=== PATIENT | female | born 1990 | race Caucasian/White ===

== ENCOUNTER → 2020-01-15 10:25 | Outpatient (BNVA) | payer OTHER, SELFPAY | PROVIDERS: Family Provider Family Medicine; PCP Family Medicine; Visit Provider Nurse Practitioner Family | DX: J11.1 Influenza due to unidentified influenza virus with other respiratory manifestations (principal); K52.9 Noninfective gastroenteritis and colitis, unspecified | CPT/HCPCS: 87804 ==

== ENCOUNTER → 2020-09-28 11:22 | Outpatient (BNVA) | payer OTHER, SELFPAY | PROVIDERS: Family Provider Family Medicine; PCP Family Medicine; Visit Provider Family Medicine | DX: Z20.828 Contact with and (suspected) exposure to other viral communicable diseases (principal) | CPT/HCPCS: 87635 ==

== ENCOUNTER 2020-09-30 20:05 | Emergency (ER) | payer OTHER, SELFPAY ==
[2020-09-30 20:10] VITALS: BP 126/86; PULSE 80; RESP 18; TEMP 37; O2SAT 94; BMI 28.8
--- NOTE | 2020-09-30 20:24 | W.ED.COVID ---
HPI - COVID General: Chief Complaint: COVID symptoms Stated Complaint: FEVER,SOB,MUSCLE ACHES,NAUSEA, waiting on covid te Time Seen by Provider: 09/30/20 20:16 Triage information: No fever, cough or shortness of breath. No known COVID + exposure last 14 days History of Present Illness: HPI Narrative: Patient with known Covid exposure now with symptoms. Sats are maintaining 90 to 95% at home MD complaint: reported COVID exposure and has COVID symptoms Prior covid testing: yes, results pending at [facility] location COVID 19 common symptoms: positive chills, non-productive cough, body aches and diarrhea; negative headache(s), throat pain or nasal congestion COVID 19 other sytmptoms: negative chest pain Onset (ago): day(s) Severity: mild Treatment prior to arrival: none COVID Results: SARS-CoV-2 RNA (RT-PCR) Pending 09/28/20 11:22 09/28/20 Review of Systems Const: Reports: chills and body aches Eyes: Denies: change in vision or blurry vision ENMT: Denies: throat pain or nasal congestion Card: Denies: chest pain or dyspnea on exertion Resp: Reports: non-productive cough GI: Reports: diarrhea Musc: Denies: extremity pain Skin/Breast: Denies: rash Neuro: Denies: headache(s) Psych: Denies: anxiety or depression Kelvin/Lymph: Denies: easy bruising PFS ED PFSH: Medical History (Updated 09/30/20 @ 20:24 by GRABIEL Holden) Anxiety and depression Mild endometriosis Pelvic pain in female Surgical History H/O bilateral salpingectomy Family History Grandmother Diabetes maternal and paternal Heart disease paternal Grandfather Heart disease paternal Mother Hypothyroidism Sister Cervical cancer Other CAD (coronary artery disease) Cancer Social History Smoking and tobacco status: never smoked Alcohol intake: never Physical Exam Const: COMMON NORMALS: no acute distress, average body habitus and patient oriented x3 HENMT: COMMON NORMALS: normocephalic HEAD & SCALP: normal to inspection and normocephalic FACE & SINUS: normal facial exam Eye: COMMON NORMALS: conjunctivae normal GENERAL EYE: appearance normal, both eyes and all related structures CONJUNCTIVA: Yes conjunctivae normal Neck/C-Spine: COMMON NORMALS: no JVD Chest: COMMONS NORMALS: normal inspection of the chest Resp: COMMON NORMALS: normal respiratory effort and clear to auscultation bilaterally AUSCULTATION: clear to auscultation bilaterally Cardio: COMMON NORMALS: no JVD, regular rate and regular rhythm RATE: regular rate RHYTHM: regular rhythm GI: INSPECTION: Yes normal to inspection Extremity: COMMON NORMALS: normal to inspection and full ROM Neuro: COMMON NORMALS: patient oriented x3 Course Vital Signs: Vital signs: Vital Signs Temperature 98.6 F 09/30/20 20:10 Pulse Rate 80 09/30/20 20:10 Respiratory Rate 18 09/30/20 20:10 Blood Pressure 126/86 09/30/20 20:10 Pulse Oximetry 94 09/30/20 20:10 MDM - COVID COVID Results: SARS-CoV-2 RNA (RT-PCR) Pending 09/28/20 11:22 09/28/20 Discharge Plan Discharge Patient Disposition: Home Clinical Impression: Exposure to severe acute respiratory syndrome coronavirus 2 (SARS-CoV-2) Condition: Stable Prescriptions: New dexamethasone 6 mg tablet 6 mg PO DAILY Qty: 7 RF: 0 Zithromax Z-Jay 250 mg tablet See Rx Instructions PO .COMPLEX Qty: 6 RF: 0 No Action biotin 10 mg tablet 10 mg PO DAILY RF: 0 multivitamin Capsule 1 cap PO DAILY RF: 0 ibuprofen 600 mg tablet 600 mg PO Q8H PRNRF: 0 loratadine [Claritin] 10 mg tablet 10 mg PO DAILY RF: 0 escitalopram oxalate [Lexapro] 10 mg tablet 10 mg PO DAILY Qty: 90 RF: 1 Discharge Orders: Discharge Order (Routine); Ordered 09/30/20 Ordered By: Yamil Oliva Referrals: Jana Goss DO [Primary Care Provider] - Discharge Diet: Usual diet Discharge Activity: Increase activity as tolerated Activity Restrictions/Additional Instructions: Follow-up with medical provider as directed. Take medications as prescribed. Return to the ER or your medical provider if condition worsens. Please read and understand discharge instructions. If any questions ask please. Self quarantine to get your Covid test back. Coding Level of Care Code ED Director Cardiovascular for Holly Long
[2020-09-30 20:26] VITALS: O2SAT 94
[2020-09-30 20:30] VITALS: BP 123/78; PULSE 79; RESP 18; O2SAT 99
[2020-09-30] MEDS: azithromycin 250 mg Tablet 500 MG PO (20:30)
[2020-09-30] MEDS: dexamethasone 4 mg Tablet 10 MG PO (20:30)
== END 2020-09-30 20:31 | disposition home or self-care (01) ==
PROVIDERS: Emergency Provider Nurse Practitioner Family; PCP Family Medicine
DX: Z20.828 Contact with and (suspected) exposure to other viral communicable diseases (principal)
CPT/HCPCS: 12345; 99281; 99283; J8540; Q0144

== ENCOUNTER → 2020-12-09 13:10 | Outpatient (BNVA) | payer OTHER, SELFPAY | PROVIDERS: PCP Family Medicine; Visit Provider Family Medicine | DX: Z13.6 Encounter for screening for cardiovascular disorders (principal); Z68.30 Body mass index [BMI] 30.0-30.9, adult | CPT/HCPCS: 80053; 85025; 85651; 86038; 86140; 86431 ==

== ENCOUNTER 2021-04-04 10:03 | Emergency (ER) | payer OTHER, SELFPAY ==
[2021-04-04 10:08] VITALS: BP 156/94; PULSE 77; RESP 16; TEMP 36.5; O2SAT 95; BMI 31.1
--- NOTE | 2021-04-04 10:17 | ECG_ITS ---
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 Measurements Intervals [place] Rate: 73 P: 21 UT: 133 QRS: 20 QRSD: 110 T: 24 QT: 386 QTc: 426 Interpretive Statements SINUS RHYTHM POSSIBLE RIGHT VENTRICULAR CONDUCTION DELAY [RSR (QR) IN V1/V2] No previous ECG available for comparison Electronically Signed On 04-04-2021 18:37:28 CDT by Ledy Lagunas M.D. [id number] f
--- NOTE | 2021-04-04 10:17 | XR_ITS ---
WS: [id number] Exam: XR chest 1V portable [id number] Date/Time of Exam: 04/04/2021 10:21 AM Reason For Exam: Cough No priors. Findings: The lungs are clear and fully expanded. Costophrenic angles are sharp. No infiltrates. Bronchovascula r relief appears normal. Cardiac silhouette is unremarkable. Bony elements are intact. XR/XR chest 1V portable [id number] IMPRESSION: Unremarkable chest radiograph.
--- NOTE | 2021-04-04 10:21 | W.ED.SYNCOPE ---
HPI - Syncope General: Chief Complaint: Syncope Stated Complaint: passed out Time Seen by Provider: 04/04/21 10:14 History of Present Illness: HPI narrative: This patient is a 30-year-old female who presents to the emergency department for a syncopal near syncopal episode this morning when getting up out of bed. Patient has dilated pupils on exam. Patient states she awakened this morning and her dog was up on the bed around her head barking patient describes that she has had numbness and tingling for several days to her lips and her fingertips. Patient does have a history of anxiety but she states this is well controlled. Patient states she got up this morning and felt really weak and had a her episode. Patient states she did pass out some as a teenager when she has severe anemia issues. But states she has regular periods that are little light and should not have an issue. Patient does not describe and states that she has had her fallopian tubes removed. Will do medical evaluation treat as needed. complaint: felt faint and almost passed out Associated symptoms: Deny abdominal pain, chest pain, fever(s), headache(s), lightheadedness or nausea Review of Systems General: Reports: 10 or more systems reviewed and unremarkable except in HPI and below Const: Denies: fever(s), chills, body aches or fatigue Eyes: Denies: change in vision or blurry vision ENMT: Denies: throat pain, hoarseness or mouth pain Card: Denies: chest pain, palpitations, irregular heart rhythm, edema, swelling of feet/ankles or lightheadedness Resp: Denies: dyspnea, productive cough, non-productive cough, wheezing or pain on inspiration GI: Denies: abdominal pain, nausea or vomiting : Denies: flank pain, difficulty voiding, dysuria, urinary frequency, urinary urgency or urinary hesitancy Musc: Denies: neck pain, back pain, extremity pain, extremity swelling, joint pain, joint swelling, joint redness, joint warmth or limited range of motion Skin/Breast: Denies: rash, pruritus, erythema or skin tenderness Neuro: Denies: headache(s), numbness in extremities or weakness in extremities Psych: Denies: anxiety or depression [facility] ED PFSH: Medical History (Updated 04/04/21 @ 13:16 by Jono Pierson MD) Anxiety and depression Mild endometriosis Pelvic pain in female Surgical History H/O bilateral salpingectomy Family History Grandmother Diabetes maternal and paternal Heart disease paternal Grandfather Heart disease paternal Mother Hypothyroidism Sister Cervical cancer Other CAD (coronary artery disease) Cancer Social History Smoking and tobacco status: never smoked Alcohol intake: never Physical Exam Const: COMMON NORMALS: no acute distress, average body habitus, patient oriented x3, no limitations, healthy appearing, alert and well nourished HENMT: COMMON NORMALS: normocephalic, atraumatic, hearing grossly normal bilaterally, external ears normal, EAC's normal, TM's normal bilaterally, Normal external nose present, Normal nasal mucous membranes and turbinates present, moist oral mucous membranes, oropharynx normal, dentition normal and gingiva normal HEAD & SCALP: normocephalic and atraumatic NOSE: Normal external nose present and Normal nasal mucous membranes and turbinates present EXTERNAL EAR: Yes external ears normal EXTERNAL AUDITORY CANAL: EAC's normal TYMPANIC MEMBRANE: TM's normal bilaterally Eye: PUPIL: Yes Dilated pupils Neck/C-Spine: COMMON NORMALS: full ROM, no lymphadenopathy, supple, no meningeal signs, no JVD, Thyroid normal and No carotid bruits THYROID: Thyroid normal Chest: COMMONS NORMALS: normal inspection of the chest, normal palpation of entire chest wall, normal inspection of the breasts and normal palpation of the breasts Breast/axilla inspection: Yes normal inspection of the breasts BREAST/AXILLA PALPATION: Yes normal palpation of the breasts Resp: COMMON NORMALS: normal respiratory effort, No retractions, No use of accessory muscles, clear to auscultation bilaterally and percussion normal AUSCULTATION: clear to auscultation bilaterally PERCUSSION: percussion normal Cardio: COMMON NORMALS: no JVD, regular rate, regular rhythm, S1 normal heart sound present, S2 normal heart sound present, No gallops present (Cardio), No clicks present (Cardio), No murmurs present (Cardio), No rub (Cardio) and Peripheral pulses 2+ throughout RATE: regular rate RHYTHM: regular rhythm HEART SOUNDS: S1 normal heart sound present and S2 normal heart sound present PERIPHERAL PULSES: Peripheral pulses 2+ throughout GI: COMMON NORMALS: Normal to inspection, nondistended, normoactive bowel sounds present, Soft to palpation, non-tender, No hepatosplenomegaly present, no masses and no bruits PALPATION: Yes Soft to palpation and Yes No hepatosplenomegaly present : COMMON NORMALS: Yes no CVA tenderness, Yes normal external appearance, Yes normal appearance of the vagina, Yes normal appearance of the cervix, Yes normal bimanual exam, Yes No adnexal tenderness and Yes no masses BLADDER/KIDNEY EXAM: Yes no CVA tenderness BIMANUAL EXAM - VAGINA & UTERUS: Yes normal bimanual exam Back/Pelvis: COMMON NORMALS: no CVA tenderness, thoracic and lumbar spine normal to inspection, no thoracic nor lumbar tenderness, thoraco-lumbar ROM normal and straight leg raise negative bilaterally Extremity: COMMON NORMALS: normal to inspection, full ROM, capillary refill normal, no joint enlargement, no clubbing, cyanosis or edema, no calf tenderness and no pedal edema Neuro: COMMON NORMALS: patient oriented x3 SENSORIUM/ORIENTATION: Yes alert MENINGEAL SIGNS: Yes no meningeal signs Course Reevaluation(s): Reevaluation #1: Nurse reports orthostatics are complete. Nurse states that slight increase of pulse but unchanged blood pressure. We will continue to monitor patient Time: 10:58 Reevaluation #2: Negative evaluation in the emergency department. Numbness and tingling to the fingers and lips have resolved. Patient states she feels much better after IV fluid bolus. Patient mild increase in heart rate and dizziness on orthostatics the beginning of her evaluation but negative now. Patient is feeling much improved. We did discuss at length with patient about orthostatic hypotension and orthostatic dizziness. Patient be careful and rising to a stand from a lying or sitting position. Encourage p.o. fluids and she will follow up with PCP in 2 to 3 days. Patient is discharged home Time: 13:13 Vital Signs: Vital signs: Vital Signs Temperature 97.7 F 04/04/21 10:08 Pulse Rate 67 04/04/21 12:54 Respiratory Rate 20 H 04/04/21 12:54 Blood Pressure 107/88 04/04/21 12:54 Pulse Oximetry 98 04/04/21 12:54 MDM - Syncope MDM Narrative: Medical decision making narrative: This patient is a 30-year-old female who presents to the emergency department for a syncopal near syncopal episode this morning when getting up out of bed. Patient has dilated pupils on exam. Patient states she awakened this morning and her dog was up on the bed around her head barking patient describes that she has had numbness and tingling for several days to her lips and her fingertips. Patient does have a history of anxiety but she states this is well controlled. Patient states she got up this morning and felt really weak and had a her episode. Patient states she did pass out some as a teenager when she has severe anemia issues. But states she has regular periods that are little light and should not have an issue. Patient does not describe and states that she has had her fallopian tubes removed. Negative evaluation in the emergency department. Numbness and tingling to the fingers and lips have resolved. Patient states she feels much better after IV fluid bolus. Patient mild increase in heart rate and dizziness on orthostatics the beginning of her evaluation but negative now. Patient is feeling much improved. We did discuss at length with patient about orthostatic hypotension and orthostatic dizziness. Patient be careful and rising to a stand from a lying or sitting position. Encourage p.o. fluids and she will follow up with PCP in 2 to 3 days. Medical Records: Attestation: I reviewed the patient's medical records. Lab Data: Attestation: I reviewed the patient's lab results. Labs: Lab Results 04/04/21 04/04/21 04/04/21 Range/Units 10:29 10:59 10:59 WBC 6.0 (4.0-10.0) 10^3/ uL RBC 4.73 (4.1-5.3) 10^6/u L Hgb 14.9 (11.5-15.3) g/dL Hct 44.7 (37.0-47.0) % MCV 94.5 (81-99) fL MCH 31.5 (28.0-34.0) pg MCHC 33.3 (30.0-36.0) g/dL RDW 12.6 (12.1-15.1) % Plt Count 214 (130-400) 10^3/c mm MPV 10.7 H (7.4-10.4) fL Neut % (Auto) 56.1 % Lymph % (Auto) 32.2 % [place] % (Auto) 8.7 % Eos % (Auto) 2.0 % Baso % (Auto) 0.8 % Neut # (Auto) 3.36 (1.8-7.7) 10^3/u L Lymph # (Auto) 1.9 (0.8-4.8) 10^3/u L [place] # (Auto) 0.5 (0.2-0.9) 10^3/u L Eos # (Auto) 0.1 (0.0-0.8) 10^3/u L Baso # (Auto) 0.1 (0.0-0.1) 10^3/u L Nucleated RBC % (a uto) 0 % Nucleated RBCs # 0.0 /100WBC PT Cancelled INR Cancelled APTT Cancelled Specimen Type Arterial Sample Site Radial, right ABG pH 7.41 (7.35-7.45) ABG pCO2 40.6 (35-45) mmHg ABG pO2 91.0 (80.0-100.0) mmH g ABG HCO3 26.0 (22-26) mmol/L ABG Base Excess 1.3 (-2.0-2.0) mmol/ L Samir Test Pos Hematocrit 45.8 (37-47) % Hgb O2 Saturation 95.7 (95-100) % Carboxyhemoglobin < 0.0 L (0.4-20.1) %THgb Methemoglobin 0.8 (0.4-1.5) % Total Hemoglobin 14.9 (12-16) g/dL O2 Delivery Device Room air FiO2 21.0 % Pot Fisher ID Ed Sodium Potassium Chloride Carbon Dioxide Anion Gap BUN Creatinine GFR Calculation Glucose Calculated Osmolal ity Calcium Total Bilirubin AST ALT Alkaline Phosphata se Troponin T Baselin e NT-Pro-B Natriuret Pep Total Protein Albumin Globulin Urine Color (Yellow) Urine Appearance (CLEAR) Urine pH (5-7) Ur Specific Gravit y (1.005-1.030) Urine Protein (Negative) Urine Glucose (UA) (Normal) Urine Ketones (Negative) Urine Blood (Negative) Urine Nitrate (Negative) Urine Bilirubin (Negative) Urine Urobilinogen (Negative) mg/dL Ur Leukocyte Ewa ase (Negative) Salicylates Urine Opiates Scre en (Negative) ng/mL Acetaminophen Ur Barbiturates Sc reen (Negative) ng/mL Ur Phencyclidine S crn (Negative) ng/mL Ur Amphetamines Sc reen (Negative) ng/mL U Benzodiazepines Scrn (Negative) ng/mL Urine Cocaine Scre en (Negative) ng/mL U Marijuana (THC) Screen (Negative) ng/mL Ethyl Alcohol 04/04/21 04/04/21 04/04/21 Range/Units 10:59 10:59 11:35 WBC (4.0-10.0) 10^3/ uL RBC (4.1-5.3) 10^6/u L Hgb (11.5-15.3) g/dL Hct (37.0-47.0) % MCV (81-99) fL MCH (28.0-34.0) pg MCHC (30.0-36.0) g/dL RDW (12.1-15.1) % Plt Count (130-400) 10^3/c mm MPV (7.4-10.4) fL Neut % (Auto) % Lymph % (Auto) % [place] % (Auto) % Eos % (Auto) % Baso % (Auto) % Neut # (Auto) (1.8-7.7) 10^3/u L Lymph # (Auto) (0.8-4.8) 10^3/u L [place] # (Auto) (0.2-0.9) 10^3/u L Eos # (Auto) (0.0-0.8) 10^3/u L Baso # (Auto) (0.0-0.1) 10^3/u L Nucleated RBC % (a uto) % Nucleated RBCs # /100WBC PT INR APTT Specimen Type Sample Site ABG pH (7.35-7.45) ABG pCO2 (35-45) mmHg ABG pO2 (80.0-100.0) mmH g ABG HCO3 (22-26) mmol/L ABG Base Excess (-2.0-2.0) mmol/ L Samir Test Hematocrit (37-47) % Hgb O2 Saturation (95-100) % Carboxyhemoglobin (0.4-20.1) %THgb Methemoglobin (0.4-1.5) % Total Hemoglobin (12-16) g/dL O2 Delivery Device FiO2 % Pot Fisher ID Sodium Cancelled Potassium Cancelled Chloride Cancelled Carbon Dioxide Cancelled Anion Gap Cancelled BUN Cancelled Creatinine Cancelled GFR Calculation Cancelled Glucose Cancelled Calculated Osmolal ity Cancelled Calcium Cancelled Total Bilirubin Cancelled AST Cancelled ALT Cancelled Alkaline Phosphata se Cancelled Troponin T Baselin e Cancelled NT-Pro-B Natriuret Pep Cancelled Total Protein Cancelled Albumin Cancelled Globulin Cancelled Urine Color Straw (Yellow) Urine Appearance Clear (CLEAR) Urine pH 7 (5-7) Ur Specific Gravit y 1.010 (1.005-1.030) Urine Protein Neg (Negative) Urine Glucose (UA) Norm (Normal) Urine Ketones Negative (Negative) Urine Blood Neg (Negative) Urine Nitrate Negative (Negative) Urine Bilirubin Neg (Negative) Urine Urobilinogen Norm (Negative) mg/dL Ur Leukocyte [place]wa [place] Negative (Negative) Salicylates Cancelled Urine Opiates Scre en (Negative) ng/mL Acetaminophen Cancelled Ur Barbiturates Sc reen (Negative) ng/mL Ur Phencyclidine S crn (Negative) ng/mL Ur Amphetamines Sc reen (Negative) ng/mL U Benzodiazepines Scrn (Negative) ng/mL Urine Cocaine Scre en (Negative) ng/mL U Marijuana (THC) Screen (Negative) ng/mL Ethyl Alcohol Cancelled 04/04/21 04/04/21 04/04/21 Range/Units 11:35 11:47 11:47 WBC (4.0-10.0) 10^3/ uL RBC (4.1-5.3) 10^6/u L Hgb (11.5-15.3) g/dL Hct (37.0-47.0) % MCV (81-99) fL MCH (28.0-34.0) pg MCHC (30.0-36.0) g/dL RDW (12.1-15.1) % Plt Count (130-400) 10^3/c mm MPV (7.4-10.4) fL Neut % (Auto) % Lymph % (Auto) % [place] % (Auto) % Eos % (Auto) % Baso % (Auto) % Neut # (Auto) (1.8-7.7) 10^3/u L Lymph # (Auto) (0.8-4.8) 10^3/u L [place] # (Auto) (0.2-0.9) 10^3/u L Eos # (Auto) (0.0-0.8) 10^3/u L Baso # (Auto) (0.0-0.1) 10^3/u L Nucleated RBC % (a uto) % Nucleated RBCs # /100WBC PT 13.40 INR 0.99 APTT 31.6 Specimen Type Sample Site ABG pH (7.35-7.45) ABG pCO2 (35-45) mmHg ABG pO2 (80.0-100.0) mmH g ABG HCO3 (22-26) mmol/L ABG Base Excess (-2.0-2.0) mmol/ L Samir Test Hematocrit (37-47) % Hgb O2 Saturation (95-100) % Carboxyhemoglobin (0.4-20.1) %THgb Methemoglobin (0.4-1.5) % Total Hemoglobin (12-16) g/dL O2 Delivery Device FiO2 % Pot Fisher ID Sodium Potassium Chloride Carbon Dioxide Anion Gap BUN Creatinine GFR Calculation Glucose Calculated Osmolal ity Calcium Total Bilirubin AST ALT Alkaline Phosphata se Troponin T Baselin e 6 NT-Pro-B Natriuret Pep Total Protein Albumin Globulin Urine Color (Yellow) Urine Appearance (CLEAR) Urine pH (5-7) Ur Specific Gravit y (1.005-1.030) Urine Protein (Negative) Urine Glucose (UA) (Normal) Urine Ketones (Negative) Urine Blood (Negative) Urine Nitrate (Negative) Urine Bilirubin (Negative) Urine Urobilinogen (Negative) mg/dL Ur Leukocyte [place]wa [place]se (Negative) Salicylates Urine Opiates Scre en Negative (Negative) ng/mL Acetaminophen Ur Barbiturates Sc reen Negative (Negative) ng/mL Ur Phencyclidine S crn Negative (Negative) ng/mL Ur Amphetamines Sc reen Negative (Negative) ng/mL U Benzodiazepines Scrn Negative (Negative) ng/mL Urine Cocaine Scre en Negative (Negative) ng/mL U Marijuana (THC) Screen Negative (Negative) ng/mL Ethyl Alcohol 04/04/21 Range/Units 11:47 WBC (4.0-10.0) 10^3/ uL RBC (4.1-5.3) 10^6/u L Hgb (11.5-15.3) g/dL Hct (37.0-47.0) % MCV (81-99) fL MCH (28.0-34.0) pg MCHC (30.0-36.0) g/dL RDW (12.1-15.1) % Plt Count (130-400) 10^3/c mm MPV (7.4-10.4) fL Neut % (Auto) % Lymph % (Auto) % [place] % (Auto) % Eos % (Auto) % Baso % (Auto) % Neut # (Auto) (1.8-7.7) 10^3/u L Lymph # (Auto) (0.8-4.8) 10^3/u L [place] # (Auto) (0.2-0.9) 10^3/u L Eos # (Auto) (0.0-0.8) 10^3/u L Baso # (Auto) (0.0-0.1) 10^3/u L Nucleated RBC % (a uto) % Nucleated RBCs # /100WBC PT INR APTT Specimen Type Sample Site ABG pH (7.35-7.45) ABG pCO2 (35-45) mmHg ABG pO2 (80.0-100.0) mmH g ABG HCO3 (22-26) mmol/L ABG Base Excess (-2.0-2.0) mmol/ L Samir Test Hematocrit (37-47) % Hgb O2 Saturation (95-100) % Carboxyhemoglobin (0.4-20.1) %THgb Methemoglobin (0.4-1.5) % Total Hemoglobin (12-16) g/dL O2 Delivery Device FiO2 % Pot Fisher ID Sodium 141 Potassium 4.1 Chloride 107 Carbon Dioxide 26 Anion Gap 12.1 BUN 9 Creatinine 0.5 GFR Calculation 143.0 H Glucose 86 Calculated Osmolal ity 290 Calcium 8.4 L Total Bilirubin 0.2 AST 16 ALT 17 Alkaline Phosphata se 69 Troponin T Baselin e NT-Pro-B Natriuret Pep 45 Total Protein 6.0 L Albumin 4.5 Globulin 1.5 Urine Color (Yellow) Urine Appearance (CLEAR) Urine pH (5-7) Ur Specific Gravit y (1.005-1.030) Urine Protein (Negative) Urine Glucose (UA) (Normal) Urine Ketones (Negative) Urine Blood (Negative) Urine Nitrate (Negative) Urine Bilirubin (Negative) Urine Urobilinogen (Negative) mg/dL Ur Leukocyte [place] (Negative) Salicylates < 0.3 L Urine Opiates Scre en (Negative) ng/mL Acetaminophen < 5.0 L Ur Barbiturates Sc reen (Negative) ng/mL Ur Phencyclidine S crn (Negative) ng/mL Ur Amphetamines Sc reen (Negative) ng/mL U Benzodiazepines Scrn (Negative) ng/mL Urine Cocaine Scre en (Negative) ng/mL U Marijuana (THC) Screen (Negative) ng/mL Ethyl Alcohol < 10 Imaging Data^: CXR: Attestation: I personally reviewed and interpreted this imaging study as follows: Radiologist's impression: IMPRESSION: Unremarkable chest radiograph. EKG Data^: EKG 1: Attestation: I personally reviewed and interpreted this EKG as follows: EKG interpretation date: 04/04/21 EKG interpretation time: 10:44 Interpretation: Sinus rhythm nonspecific EKG changes heart rate 73 ABG Data^: ABG Interpretation 1: Attestation: I personally reviewed and interpreted this ABG as follows: Interpretation: Normal ABG Discharge Plan Discharge Patient Disposition: Home Clinical Impression: Orthostasis Condition: Stable Prescriptions: No Action biotin 10 mg tablet 10 mg PO DAILY RF: 0 multivitamin Capsule 1 cap PO DAILY RF: 0 loratadine [Claritin] 10 mg tablet 10 mg PO DAILY PRN (Reason: Allergy Symptoms) RF: 0 celecoxib [Celebrex] 200 mg capsule 200 mg PO DAILY Qty: 90 RF: 1 escitalopram oxalate [Lexapro] 10 mg tablet 10 mg PO DAILY Qty: 90 RF: 1 Discharge Orders: Discharge ED (Routine); Ordered 04/04/21 Ordered By: Jono Pierson Referrals: Jana Goss DO [Primary Care Provider] - Discharge Diet: Usual diet Discharge Activity: Resume usual activity Patient Instructions: Opioid Safety Activity Restrictions/Additional Instructions: Encourage p.o. fluids. Transition from lying to sitting to standing slowly. Follow-up with PCP in 2 to 3 days Coding Level of Care Code ED Job Compositor for Chg Fwd Exam Comprehensive
[2021-04-04 10:38] LABS: ABG PCO2 40.6 mmHg (35-45); ABG PH Result 7.41 (7.35-7.45); Arterial Blood Gas Hematocrit 45.8 % (37-47); Base Excess ABG 1.3 mmol/L (-2.0-2.0); Blood Gas Allen Test Pos; Blood Gas Sample Type Arterial; Carboxyhemoglobin < 0.0 %THgb (0.4-20.1); HGB O2 Sat 95.7 % (95-100); Methemoglobin 0.8 % (0.4-1.5); Total Hemoglobin 14.9 g/dL (12-16)
[2021-04-04 10:39] LABS: Blood Gas Operator Identificat ED; Blood Gas Sample Site Radial, right; Oxygen Device ROOM AIR
[2021-04-04 10:53] VITALS: BP 109/77; BP 121/85; BP 131/91; PULSE 100; PULSE 74; PULSE 79; PULSE 82; RESP 18; O2SAT 96
[2021-04-04] MEDS: sodium chloride 0.9% 1,000 ML 999 ML IV (11:00)
[2021-04-04 11:13] LABS: Basophils # 0.1 10^3/uL (0.0-0.1); Basophils % 0.8 %; Eosinophils # 0.1 10^3/uL (0.0-0.8); Hematocrit 44.7 % (37.0-47.0); Hemoglobin 14.9 g/dL (11.5-15.3); Lymphocytes # 1.9 10^3/uL (0.8-4.8); Lymphocytes % 32.2 %; Mean Corpuscular HGB Conc 33.3 g/dL (30.0-36.0); Mean Corpuscular Hemoglobin 31.5 pg (28.0-34.0); Mean Corpuscular Volume 94.5 fL (81-99); Mean Platelet Volume 10.7 fL (7.4-10.4); Monocytes # 0.5 10^3/uL (0.2-0.9); Monocytes % 8.7 %; Neutrophils # 3.36 10^3/uL (1.8-7.7); Neutrophils % 56.1 %; Nucleated Red Blood Cells % 0 %; Platelet Count 214 10^3/cmm (130-400); Red Blood Count 4.73 10^6/uL (4.1-5.3); Red Cell Distribution Width 12.6 % (12.1-15.1)
[2021-04-04 11:57] LABS: Add Urine Microscopic? NO; Charge for UA Resulting for Rev
[2021-04-04 12:02] LABS: Bilirubin Urine Neg (Negative); Blood Urine Neg (Negative); Glucose Urine UA Norm (Normal); Ketones Urine Negative (Negative); Leukocyte Esterase Urine Negative (Negative); Nitrate Urine Negative (Negative); Protein Urine Neg (Negative); Urine Appearance Clear (CLEAR); Urine Color Straw (Yellow); Urobilinogen Urine Norm (Negative); pH Urine 7 (5-7)
[2021-04-04 12:11] LABS: Amphetamines Screen Urine Negative (Negative); Barbiturates Screen Urine Negative (Negative); Benzodiazepines Screen Urine Negative (Negative); Cocaine Screen Urine Negative (Negative); Opiate Screen Urine Negative (Negative); PCP Screen Urine Negative (Negative); THC Screen Urine Negative (Negative)
[2021-04-04 12:11] LABS: INR 0.99 (0.8-1.2); Partial Thromboplastin Time 31.6 SECONDS (23.9-36.7)
[2021-04-04 12:21] LABS: Troponin(5th) Baseline 6 ng/L (0-10)
[2021-04-04 12:35] LABS: Alanine Aminotransferase 17 U/L (0-33); Albumin Level 4.5 g/dL (3.5-5.2); Alkaline Phosphatase 69 IU/L (35-105); Anion Gap 12.1 (5-19); Aspartate Amino Transferase 16 U/L (0-32); Blood Urea Nitrogen 9 mg/dL (6-20); Calcium 8.4 mg/dL (8.5-10.5); Carbon Dioxide 26 mmol/L (22-29); Chloride 107 mmol/L (98-107); Globulin 1.5 g/dL (1.3-4.6); Glucose 86 mg/dL (65-115); NT Pro B Type Natriuretic Pept 45 pg/mL (0-125); Osmolality Calculated 290 mOsm/kg (285-295); Potassium 4.1 mmol/L (3.5-5.1); Sodium 141 mmol/L (136-145); Total Bilirubin 0.2 mg/dL (0.15-1.2)
[2021-04-04 12:37] LABS: Acetaminophen < 5.0 ug/mL (10-30); Salicylate < 0.3 mg/dL (3-10)
[2021-04-04 12:38] LABS: Alcohol Level < 10 mg/dL (0-10)
[2021-04-04 12:54] VITALS: BP 107/88; PULSE 67; RESP 20; O2SAT 98
[2021-04-04 13:28] VITALS: BP 109/77; PULSE 69; RESP 21; O2SAT 97
== END 2021-04-04 13:29 | disposition home or self-care (01) ==
PROVIDERS: Emergency Provider Emergency Medicine; PCP Family Medicine
DX: I95.1 Orthostatic hypotension (principal)
CPT/HCPCS: 36415; 36600; 71045; 80053; 80306; 80307; 81003; 82805; 83880; 84484; 85025; 85610; 85730; 93005; 96360; 99284; J7030

== ENCOUNTER → 2021-11-07 10:07 | Outpatient (BNVA) | payer OTHER, SELFPAY | PROVIDERS: PCP Family Medicine; Visit Provider Family Medicine | DX: Z20.828 Contact with and (suspected) exposure to other viral communicable diseases (principal) | CPT/HCPCS: 87635 ==

== ENCOUNTER → 2021-11-30 12:26 | Outpatient (BNVA) | payer OTHER, SELFPAY | PROVIDERS: PCP Family Medicine; Visit Provider Family Medicine | DX: Z20.828 Contact with and (suspected) exposure to other viral communicable diseases (principal); Z20.822 Contact with and (suspected) exposure to COVID-19 | CPT/HCPCS: 87635 ==

== ENCOUNTER → 2023-02-22 14:50 | Outpatient (BNVA) | payer OTHER, SELFPAY | PROVIDERS: PCP Family Medicine; Visit Provider Nurse Practitioner Women's Health | DX: Z12.4 Encounter for screening for malignant neoplasm of cervix (principal); R00.2 Palpitations | CPT/HCPCS: 84439; 84443; 87624 ==

== ENCOUNTER 2023-02-26 20:04 | Emergency (ER) | payer OTHER, SELFPAY ==
[2023-02-26 20:12] VITALS: BP 147/100; PULSE 92; RESP 17; TEMP 36.7; O2SAT 98; BMI 36.3
--- NOTE | 2023-02-26 20:14 | XRR_ITS ---
PROCEDURE INFORMATION: Exam: XR Chest Exam date and time: 02/26/2023 8:22 PM Age: 32 years old Clinical indication: Shortness of breath; Additional info: Cp TECHNIQUE: Imaging protocol: Radiologic exam of the chest. Views: 1 view. COMPARISON: CR XR chest 1V portable [id number] 04/04/2021 10:18 AM FINDINGS: Tubes, catheters and devices: Small electronic device projects over the upper chest and may be outside the patient. Lungs: Unremarkable. No consolidation. Pleural spaces: Unremarkable. No pleural effusion. No pneumothorax. Heart/Mediastinum: Unremarkable. No cardiomegaly. Bones/joints: Unremarkable. XR/XR chest 1V portable [id number] IMPRESSION: No acute findings.
--- NOTE | 2023-02-26 20:14 | ECG_ITS ---
[facility] Test Date: 2023-02-26 Pat Name: Violetta Emerson Department: Room: Gender: Female Tag Stringer: : 1990 Requested By: Lexi Jasso Order Number: [id number] Karina MD: John Navarro M.D. Measurements Intervals [place] Rate: 88 P: 111 TN: 133 QRS: 51 QRSD: 105 T: 90 QT: 354 QTc: 430 Interpretive Statements SINUS RHYTHM WITH SINUS ARRHYTHMIA INCOMPLETE RIGHT BUNDLE BRANCH BLOCK [90+ ms QRS DURATION, TERMINAL R IN V1/V2, 40+ ms S IN I/aVL/V4/V5/V6] LATERAL MYOCARDIAL INFARCTION , PROBABLY OLD [40+ ms Q WAVE AND/OR ST/T ABNORMALITY IN I/aVL/V5/V6] Compared to ECG 04/04/2021 10:44:48 Incomplete right bundle-branch block now present Myocardial infarct finding now present Electronically Signed On 02-27-2023 1:43:26 CDT by John Navarro M.D. [id number] f
[2023-02-26 20:48] LABS: Basophils # 0.1 10^3/uL (0.0-0.1); Basophils % 0.4 %; Eosinophils # 0.2 10^3/uL (0.0-0.8); Eosinophils % 1.3 %; Hematocrit 43.8 % (37.0-47.0); Hemoglobin 14.8 g/dL (11.5-15.3); Lymphocytes # 2.8 10^3/uL (0.8-4.8); Lymphocytes % 20.7 %; Mean Corpuscular HGB Conc 33.8 g/dL (30.0-36.0); Mean Corpuscular Hemoglobin 30.8 pg (28.0-34.0); Mean Corpuscular Volume 91.3 fl (81-99); Mean Platelet Volume 10.1 fL (7.4-10.4); Monocytes # 0.7 10^3/uL (0.2-0.9); Monocytes % 4.8 %; Neutrophils % 72.5 %; Nucleated Red Blood Cells % 0 %; Platelet Count 284 10^3/cmm (130-400); Red Cell Distribution Width 12.2 % (12.1-15.1); White Blood Count 13.5 10^3/uL (4.0-10.0)
[2023-02-26 21:09] LABS: Troponin(5th) Baseline 16 ng/L (0-10)
[2023-02-26 21:16] LABS: Alanine Aminotransferase 28 U/L (0-33); Albumin Level 4.1 g/dL (3.5-5.2); Alkaline Phosphatase 99 U/L (35-105); Anion Gap 17.9 (5-19); Aspartate Amino Transferase 19 U/L (0-32); Blood Urea Nitrogen 9 mg/dL (6-20); Carbon Dioxide 23 mmol/L (22-29); Chloride 100 mmol/L (98-107); Globulin 2.7 g/dL (1.3-4.6); Glomerular Filtration Rate 82.1 mL/min (90-130); Glucose 109 mg/dL (65-115); NT Pro B Type Natriuretic Pept 36 pg/mL (0-125); Osmolality Calculated 283 mOsm/kg (285-295); Potassium 3.9 mmol/L (3.5-5.1); Sodium 137 mmol/L (136-145); Total Bilirubin 0.3 mg/dL (0.15-1.2); Total Protein 6.8 g/dL (6.6-8.7)
--- NOTE | 2023-02-26 22:02 | ED_ITS ---
HPI - Chest Pain General: Chief Complaint: Chest Pain Stated Complaint: sob, chest pain Time Seen by Provider: 02/26/23 22:02 History of Present Illness: 32-year-old female comes in today for complaints of sharp chest pain that occurred while she was making supper and had sudden pressure in her chest. On arrival to the ER patient states that the pressure seemed to relieve but she had intense sharp pain that lasted for about 10 minutes. Patient now reports that she is pain-free and appears in no acute distress. Associated symptoms: Deny dyspnea, fever(s), nausea or vomiting Review of Systems General: Reports: 10 or more systems reviewed and unremarkable except in HPI and below Const: Denies: fever(s) Card: Denies: chest pain Resp: Denies: dyspnea GI: Denies: nausea, vomiting, diarrhea or constipation : Denies: flank pain Musc: Denies: back pain Skin/Breast: Denies: rash Neuro: Denies: headache(s) PFSH ED PFSH: Medical History Mild endometriosis (~08/2019) confirmed endometriosis lesions on the posterior aspect of the left uterosacral ligament cul-de-sac and left cardinal ligaments. Performed by Dr. Cassidy. No pertinent past medical history neghx: htn,dm,thyroid,dvt/pe PCP: Dr. Goss Psychiatric care PTSD (post-traumatic stress disorder) Surgical History H/O bilateral salpingectomy (~08/2019) Pathology: Normal morphology. Confirmed endometriosis lesions on the posterior aspect of the left uterosacral ligament cul-de-sac and left cardinal ligaments. Performed by Dr. Cassidy. Family History Grandmother Diabetes maternal and paternal Heart disease paternal Grandfather Heart disease paternal Hypercholesteremia Paternal Hypertension Paternal Mother Thyroid disease Sister Cervical cancer dx age 24- at the time of dx; had hysterectomy Denies family history of Colon cancer Ovarian cancer Breast cancer Uterine cancer Stroke Social History Smoking and tobacco status: former smoker Alcohol intake: never Physical Exam Const: COMMON NORMALS: alert HENMT: COMMON NORMALS: normocephalic HEAD & SCALP: normocephalic MOUTH: Normal oral and palatal mucosa present Neck/C-Spine: COMMON NORMALS: full ROM Chest: COMMONS NORMALS: normal palpation of entire chest wall Resp: COMMON NORMALS: normal respiratory effort and clear to auscultation bilaterally AUSCULTATION: clear to auscultation bilaterally Cardio: COMMON NORMALS: regular rate and regular rhythm RATE: regular rate RHYTHM: regular rhythm GI: COMMON NORMALS: Soft to palpation AUSCULTATION: Yes normoactive bowel sounds PALPATION: Yes Soft to palpation and No Tenderness to palpation present (GI) Extremity: COMMON NORMALS: normal to inspection Neuro: SENSORIUM/ORIENTATION: Yes alert Skin: COMMON NORMALS: turgor normal GENERAL SKIN EXAM: turgor normal Course Vital Signs: Vital signs: Vital Signs Temperature 98.1 F 02/26/23 20:12 Pulse Rate 92 02/26/23 20:12 Respiratory Rate 17 02/26/23 20:12 Blood Pressure 125/97 02/26/23 22:39 Pulse Oximetry 98 02/26/23 20:12 Oxygen Delivery Me thod Room Air 02/26/23 20:12 MDM - Chest Pain Medical Decision Making 32-year-old female comes in today for complaints of chest pressure that turned into sharp chest pain and has resolved since arriving to the ER. Patient has no prior cardiac history but does have a family history of early cardiac disease with father having a heart attack at 36 years of age. Patient appears nontoxic. Skin is warm and dry. No chest wall tenderness. Abdomen soft with some right abdominal tenderness. Bowel sounds are present. No edema is noted in the extremities. Vital signs are normal except for some elevated blood pressure. Differential diagnosis includes but not limited to ACS, uncontrolled hypertension, renal colic, gallbladder disease, gastritis. Laboratory showed no changes of troponin over 2 hours. Gallbladder ultrasound was unremarkable. Chest x-ray was unremarkable. Remainder of labs were unremarkable. Reviewed exam with patient with recommendations for treatment for continued Holter monitor as directed by Dr. Goss. Patient might want to have further evaluation and treatment with cardiology or if no cardiac problem is noted may be a HIDA scan for further gallbladder evaluation. Patient reported understanding of care plan and need for follow-up or return to the ER. Lab Data 02/26/23 20:35 02/26/23 20:35 Radiology Impressions Chest X-Ray 02/26/23 20:14 IMPRESSION: No acute findings. Gallbladder Ultrasound 02/26/23 22:29 IMPRESSION: 1. No acute findings. 2. Enlarged liver with mild steatosis/steatohepatitis. Laboratory Results WBC 13.5 10^3/uL (4.0-10.0) H 02/26/23 20:35 RBC 4.80 10^6/uL (4.1-5.3) 02/26/23 20:35 Hgb 14.8 g/dL (11.5-15.3) 02/26/23 20:35 Hct 43.8 % (37.0-47.0) 02/26/23 20:35 MCV 91.3 fl (81-99) 02/26/23 20:35 MCH 30.8 pg (28.0-34.0) 02/26/23 20:35 MCHC 33.8 g/dL (30.0-36.0) 02/26/23 20:35 RDW 12.2 % (12.1-15.1) 02/26/23 20:35 Plt Count 284 10^3/cmm (130-400) 02/26/23 20:35 MPV 10.1 fL (7.4-10.4) 02/26/23 20:35 Neut % (Auto) 72.5 % 02/26/23 20:35 Lymph % (Auto) 20.7 % 02/26/23 20:35 Bracken % (Auto) 4.8 % 02/26/23 20:35 Eos % (Auto) 1.3 % 02/26/23 20:35 Baso % (Auto) 0.4 % 02/26/23 20:35 Neut # (Auto) 9.80 10^3/uL (1.8-7.7) H 02/26/23 20:35 Lymph # (Auto) 2.8 10^3/uL (0.8-4.8) 02/26/23 20:35 Bracken # (Auto) 0.7 10^3/uL (0.2-0.9) 02/26/23 20:35 Eos # (Auto) 0.2 10^3/uL (0.0-0.8) 02/26/23 20:35 Baso # (Auto) 0.1 10^3/uL (0.0-0.1) 02/26/23 20:35 Nucleated RBC % (auto) 0 % 02/26/23 20:35 Nucleated RBCs # 0.0 /100WBC 02/26/23 20:35 Sodium 137 mmol/L (136-145) 02/26/23 20:35 Potassium 3.9 mmol/L (3.5-5.1) 02/26/23 20:35 Chloride 100 mmol/L (98-107) 02/26/23 20:35 Carbon Dioxide 23 mmol/L (22-29) 02/26/23 20:35 Anion Gap 17.9 (5-19) 02/26/23 20:35 BUN 9 mg/dL (6-20) 02/26/23 20:35 Creatinine 0.8 mg/dL (0.5-0.9) 02/26/23 20:35 GFR Calculation 82.1 mL/min (90-130) L 02/26/23 20:35 Glucose 109 mg/dL (65-115) 02/26/23 20:35 Calculated Osmolality 283 mOsm/kg (285-295) L 02/26/23 20:35 Calcium 9.0 mg/dL (8.5-10.5) 02/26/23 20:35 Total Bilirubin 0.3 mg/dL (0.15-1.2) 02/26/23 20:35 AST 19 U/L (0-32) 02/26/23 20:35 ALT 28 U/L (0-33) 02/26/23 20:35 Alkaline Phosphatase 99 U/L (35-105) 02/26/23 20:35 Troponin T Baseline 16 ng/L (0-10) H 02/26/23 20:35 Troponin T 120 Minute 13.12 ng/L (0-10) H 02/26/23 22:00 Delta Troponin T -2.88 ABS# (0-10) L 02/26/23 22:00 NT-Pro-B Natriuret Pep 36 pg/mL (0-125) 02/26/23 20:35 Total Protein 6.8 g/dL (6.6-8.7) 02/26/23 20:35 Albumin 4.1 g/dL (3.5-5.2) 02/26/23 20:35 Globulin 2.7 g/dL (1.3-4.6) 02/26/23 20:35 Discharge Plan Discharge Patient Disposition: Home Clinical Impression: Chest pain Condition: Stable Prescriptions: No Action biotin 10 mg tablet 10 mg PO DAILY loratadine [Claritin] 10 mg tablet 10 mg PO DAILY PRN (Reason: Allergy Symptoms) escitalopram oxalate 20 mg tablet 20 mg PO DAILY Qty: 90 1RF prazosin 1 mg capsule 1 mg PO .qhs Qty: 90 1RF tazarotene 0.1 % cream 1 applic topical DAILY Qty: 60 3RF Rx Instructions: apply pea sized amount to clean, dry face, chest and back nightly clindamycin-benzoyl peroxide 1.2 %(1 % base) -5 % gel 1 applic topical DAILY Qty: 45 2RF Rx Instructions: Apply thin film to face chest and back every morning. May bleach clothes. bupropion HCl [Wellbutrin XL] 150 mg tablet extended release 24 hr 150 mg PO QAM Qty: 90 1RF Probiotic Pearls Women's 1 billion cell capsule,delayed release(DR/EC) PO vitamin B complex Capsule 1 cap PO DAILY pantoprazole 40 mg tablet,delayed release (DR/EC) 40 mg PO DAILY Qty: 90 0RF albuterol sulfate [ProAir HFA] 90 mcg/actuation HFA aerosol inhaler 2 puff inhalation Q4H PRN (Reason: shortness of breath or wheezing) Qty: 6.7 0RF Discharge Orders: Discharge ED (Routine); Ordered 02/26/23 Ordered By: Brent Dumont Referrals: Jana Goss DO [Primary Care Provider] - Discharge Diet: Usual diet Discharge Activity: Increase activity as tolerated Patient Instructions: Chest Pain (ED) Activity Restrictions/Additional Instructions: No signs of acute coronary syndrome was noted on your exam today. Continue with routine care and follow-up with primary care for further instruction and evaluation. Return to emergency department for new concerns or worsening symptoms. Coding Level of Care Code ED Sales Associate for Holly Long
[2023-02-26 22:22] LABS: Troponin 5 2HR 13.12 ng/L (0-10)
[2023-02-26 22:26] LABS: Troponin 5 2HR Delta -2.88 ABS# (0-10)
--- NOTE | 2023-02-26 22:29 | USR_ITS ---
PROCEDURE INFORMATION: Exam: US Abdomen, Limited; Right Upper Quadrant Exam date and time: 02/26/2023 10:53 PM Age: 32 years old Clinical indication: Patient HX: Chest pain, epigastric pain, now resolved. Normal tbili = 0.3, normal ast = 19, normal alt = 28, normal alkphos = 99; Additional info: Abd pain, radiating to chest and back TECHNIQUE: Imaging protocol: Real time ultrasound of the abdomen with image documentation. Limited exam focused on the right upper quadrant. COMPARISON: US abdomen limited [id number] 04/09/2019 7:17 AM FINDINGS: Liver: The liver is enlarged measuring 17.0 cm with diffuse mildly increased echogenicity. Gallbladder: The gallbladder is incompletely distended with a wall thickness of 3 mm, similar to the prior study. No gallstones or sludge. Biliary ducts: Normal. No stones. No dilation. Pancreas: Visualized pancreas is unremarkable. Right kidney: Normal. No mass. No hydronephrosis. US/US gall bladder [id number] IMPRESSION: 1. No acute findings. 2. Enlarged liver with mild steatosis/steatohepatitis.
[2023-02-26 22:39] VITALS: BP 125/97
[2023-02-26 23:53] VITALS: BP 130/90; PULSE 90; RESP 18; O2SAT 99
== END 2023-02-26 23:55 | disposition home or self-care (01) ==
PROVIDERS: Emergency Medicine; Emergency Provider Nurse Practitioner Family; PCP Family Medicine
DX: R07.9 Chest pain, unspecified (principal); Z87.891 Personal history of nicotine dependence
CPT/HCPCS: 36415; 71045; 76705; 80053; 83880; 84484; 85025; 93005; 99285

== ENCOUNTER 2023-05-08 11:59 | Outpatient (CLI) | payer OTHER, SELFPAY ==
--- NOTE | 2023-05-08 | ECG_ITS ---
[facility] Test Date: 2023-05-08 Pat Name: Violetta Emerson Department: Room: Gender: Female Health Economist: : 1990 Requested By: Jana Goss Order Number: [id number] Collins MD: John Navarro M.D. Interpretive Statements NAME OF STUDY: TREADMILL STRESS TEST INDICATION: [Chest Pain, ] EXERCISE DATA: The patient was exercised by Kye protocol. Baseline heart rate was 92 beats per minute. Baseline blood pressure was 111/82 millimeters of mercury. Target heart rate was 158 beats per minute. Maximum heart rate achieved was 162 which was 102% of the target heart rate. Maximum blood pressure was 176/73 millimeters of mercury. Total exercise time was 4 minutes 55 seconds. Maximum METs achieved was 7. The reason for ending the test was maximal effort achieved. The patient complained of shortness of breath during the stress test, which then resolved at the end of the test. ELECTROCARDIOGRAM: BASELINE: Showed sinus rhythm, normal axis, no significant ST-T changes at the baseline noted. [] EXERCISE: At the peak exercise level, [] No significant ST-T changes suggestive of ischemia noted. [] RECOVERY: During the recovery period, heart rate dropped appropriately. No significant ST-T changes in the recovery suggestive of ischemia noted. [] CONCLUSION: 1. Exercise capacity is fair. 2. Heart rate response was appropriate. 3. Blood pressure response was appropriate. 4. Symptoms not suggestive of ischemia. 5. Stress test shows no evidence of ischemia. Electronically Signed On 05-11-2023 14:58:32 CDT by John Navarro M.D. [id number]
[2023-05-08 12:05] VITALS: BMI 38.7
[2023-05-08 12:27] VITALS: BP 133/73; PULSE 98
== END 2023-05-08 12:00 | disposition home or self-care (01) ==
PROVIDERS: PCP Family Medicine; Visit Provider Family Medicine
DX: R07.9 Chest pain, unspecified (principal)
CPT/HCPCS: 93017

== ENCOUNTER → 2023-10-15 14:23 | Outpatient (BNVA) | payer OTHER, SELFPAY | PROVIDERS: PCP Family Medicine; Visit Provider Nurse Practitioner Family | DX: J02.9 Acute pharyngitis, unspecified | CPT/HCPCS: 87880 ==

== ENCOUNTER → 2024-05-12 09:18 | Outpatient (BNVA) | payer OTHER, SELFPAY | PROVIDERS: PCP Family Medicine; Visit Provider Family Medicine | DX: E66.9 Obesity, unspecified (principal); Z86.39 Personal history of other endocrine, nutritional and metabolic disease; F43.10 Post-traumatic stress disorder, unspecified; F32.1 Major depressive disorder, single episode, moderate; K21.9 Gastro-esophageal reflux disease without esophagitis; R03.0 Elevated blood-pressure reading, without diagnosis of hypertension; Z79.899 Other long term (current) drug therapy | CPT/HCPCS: 80053; 80061; 82533; 82672; 84144; 84439; 84443; 85025; 86376 ==

== ENCOUNTER 2024-06-16 23:43 | Emergency (ER) | payer OTHER, SELFPAY ==
[2024-06-16 23:49] VITALS: BP 128/93; PULSE 97; RESP 20; TEMP 36.7; O2SAT 99; BMI 37.0
--- NOTE | 2024-06-16 23:53 | ECG_ITS ---
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 Measurements Intervals [place] Rate: 96 P: 17 CT: 132 QRS: -7 QRSD: 92 T: 1 QT: 345 QTc: 437 Interpretive Statements SINUS RHYTHM LOW QRS VOLTAGE IN PRECORDIAL LEADS [QRS DEFLECTION < 1.0 mV IN CHEST LEADS] INCOMPLETE RIGHT BUNDLE BRANCH BLOCK [90+ ms QRS DURATION, TERMINAL R IN V1/V2, 40+ ms S IN I/aVL/V4/V5/V6] MODERATE T-WAVE ABNORMALITY, CONSIDER ANTERIOR ISCHEMIA [-0.1+ mV T-WAVE IN V3/V4] Compared to ECG 02/26/2023 20:14:35 Low QRS voltage now present T-wave abnormality now present Possible ischemia now present Sinus arrhythmia no longer present Myocardial infarct finding no longer present Electronically Signed On 06-17-2024 10:29:18 CDT by John Navarro M.D. [id number]
--- NOTE | 2024-06-17 00:11 | XRR_ITS ---
PROCEDURE INFORMATION: Exam: XR Chest Exam date and time: 06/17/2024 12:56 AM Age: 33 years old Clinical indication: Dyspnea; Additional info: Cp, SOA TECHNIQUE: Imaging protocol: Radiologic exam of the chest. Views: 1 view. COMPARISON: CR XR chest 1V portable [id number] 02/26/2023 8:22 PM FINDINGS: Lungs: No consolidation. Pleural spaces: Unremarkable. No pleural effusion. No pneumothorax. Heart/Mediastinum: No cardiomegaly. Bones/joints: No acute fracture. XR/XR chest 1V [id number] IMPRESSION: No acute findings.
--- NOTE | 2024-06-17 00:18 | ED_ITS ---
Documented by User: FRANCOISE Knowles 06/17/24 01:40 HPI - Chest Pain 2 General: Chief Complaint: Chest Pain Stated Complaint: CP Time Seen by Provider: 06/16/24 23:59 Source: patient Mode of arrival: ambulatory Limitations: no limitations History of Present Illness: Patient presents emergency department today for evaluation treatment of retrosternal chest pain radiating into her back and shoulders starting about 3 hours ago. Patient states she was reading a book when she started having pain. It is associated with shortness of breath and difficulty getting a deep breath in. She reports she took a couple of Tums which provided her some brief relief but, patient states pain returned and actually worsened. She states she took the pantoprazole as well. Patient states she has been seen several times over the years for chest pains. She says that when she was 14 she had to see pediatric clinical nurse specialist who told her she had a valve issues however, her parents never had her followed up with. She states she was fine up until couple years ago when she has been dealing with recurrent episodes of chest pains. She states she is always told she has abnormal EKGs and when she has follow-up, the doctors tell her everything looks fine. Patient states that she describes the pain as pressure on her sternum and on her back pushing together. It then radiates up into the right shoulder region with some radiation into the left shoulder. She feels nauseated. She states she has a tingling and numbness sensation around her mouth and on her fingers. Review of Systems 2 General: Reports: 10 or more systems reviewed and unremarkable except in HPI and below PFSH ED 2 PFSH: Medical History Moderate major depression Obesity, Class II, BMI 35-39.9 Abnormal finding on EKG Psychiatric care No pertinent past medical history neghx: htn,dm,thyroid,dvt/pe PCP: Dr. Goss PTSD (post-traumatic stress disorder) Mild endometriosis (~08/2019) confirmed endometriosis lesions on the posterior aspect of the left uterosacral ligament cul-de-sac and left cardinal ligaments. Performed by Dr. Cassidy. Surgical History H/O bilateral salpingectomy (~08/2019) Pathology: Normal morphology. Confirmed endometriosis lesions on the posterior aspect of the left uterosacral ligament cul-de-sac and left cardinal ligaments. Performed by Dr. Cassidy. Family History Grandmother Diabetes maternal and paternal Heart disease paternal Grandfather Heart disease paternal Hypercholesteremia Paternal Hypertension Paternal Mother Thyroid disease Sister Cervical cancer dx age 24- at the time of dx; had hysterectomy Denies family history of Colon cancer Ovarian cancer Breast cancer Uterine cancer Stroke Social History Smoking and tobacco/nicotine status: never used tobacco/nicotine Alcohol intake: current Alcohol intake frequency: holidays/special occasions only Substance/Drug Use: never Physical Exam 2 Const: COMMON NORMALS: patient oriented x3 and alert GENERAL APPEARANCE: w ell kempt OTHER: Patient appears quite anxious but is answering her own history. Thought process is clear and concise. Vital signs stable though patient is somewhat tachypneic with O2 sat 99% on room air. Eye: COMMON NORMALS: Equal, round and reactive pupils present, EOMs intact bilaterally and conjunctivae normal CONJUNCTIVA: Yes conjunctivae normal P UPIL: Yes Equal, round and reactive pupils present Neck/C-Spine: COMMON NORMALS: no JVD Lymph: LYMPHATIC: no lymphadenopathy noted Resp: COMMON NORMALS: normal respiratory effort, No retractions and No use of accessory muscles Cardio: COMMON NORMALS: no JVD and regular rate RATE: regular rate : COMMON NORMALS: Yes no CVA tenderness BLADDER/KIDNEY EXAM: Yes no CVA tenderness Back/Pelvis: COMMON NORMALS: no CVA tenderness, thoracic and lumbar spine normal to inspection and thoraco-lumbar ROM normal Extremity: COMMON NORMALS: normal to inspection, full ROM and no pedal edema Neuro: COMMON NORMALS: patient oriented x3 SENSORIUM/ORIENTATION: Yes alert Psych: COMMON NORMALS: mental status grossly normal, Normal thought process present, cooperative and speech normal APPEARANCE: Yes grossly normal and Yes well kempt SPEECH: Yes normal speech MOOD & AFFECT: Yes anxious and Yes fearful THOUGHT PROCESS: Normal thought process present Skin: COMMON NORMALS: no rashes or lesions noted and turgor normal GENERAL SKIN EXAM: no rashes or lesions noted and turgor normal Course 2 Vital Signs: Vital signs: Vital Signs Temperature 98.0 F 06/16/24 23:49 Pulse Rate 84 06/17/24 02:00 Respiratory Rate 16 06/17/24 02:00 Blood Pressure 108/65 06/17/24 02:00 Pulse Oximetry 98 06/17/24 02:00 Oxygen Delivery Me thod Room Air 06/17/24 02:00 MDM - Chest Pain Medical Decision Making Patient presents emergency department today for complaints of retrosternal chest pain radiating into her back and extending out to her shoulders. Patient reports complaints of pain now for about 3 hours noting some improvement with taking Tums but, pain returning and worsening. Patient also endorses nausea and tingling/numbness around her lips and of her fingertips. Patient states that she has been told in the past she has heart issues. On arrival to the room, patient has normal vital signs though she is a bit tachypneic. She is sitting upright and is providing all of her own history. She seems extremely anxious and my initial suspicion is a panic attack given the tingling numbness around the mouth and the fingers. Patient states she is nauseated so we will treat with Compazine and Benadryl to see if that can also help provide a somewhat calming effect to the patient. Discussed with her we will provide her a cardiac evaluation here in the emergency department today. Discussed case with Dr. Tobar. At this time, we are still waiting for the patient's workup to be completed as we only have the CBC back at this time. Transfer of care to Dr. Tobar for continued monitoring and treatment of this patient at 0100. Lab Data 06/17/24 00:20 06/17/24 00:20 Radiology Impressions Chest X-Ray 06/17/24 00:11 IMPRESSION: No acute findings. Laboratory Results WBC 9.26 10^3/uL (3.29-11.43) 06/17/24 00:20 RBC 5.03 10^6/uL (3.85-5.65) 06/17/24 00:20 Hgb 15.50 g/dL (11.27-16.99) 06/17/24 00:20 Hct 44.9 % (36-47) 06/17/24 00:20 MCV 89.3 fl (85-98) 06/17/24 00:20 MCH 30.8 pg (27-33) 06/17/24 00:20 MCHC 34.5 g/dL (30-55) 06/17/24 00:20 RDW 12.3 % (12.1-15.1) 06/17/24 00:20 Plt Count 256 10^3/cmm (157-399) 06/17/24 00:20 MPV 11.0 fL (7.4-10.4) H 06/17/24 00:20 Neut % (Auto) 54.4 % 06/17/24 00:20 Lymph % (Auto) 35.6 % 06/17/24 00:20 Hardee % (Auto) 6.2 % 06/17/24 00:20 Eos % (Auto) 3.0 % 06/17/24 00:20 Baso % (Auto) 0.5 % 06/17/24 00:20 Neut # (Auto) 5.03 10^3/uL (1.8-7.7) 06/17/24 00:20 Lymph # (Auto) 3.3 10^3/uL (0.8-4.8) 06/17/24 00:20 Hardee # (Auto) 0.6 10^3/uL (0.2-0.9) 06/17/24 00:20 Eos # (Auto) 0.3 10^3/uL (0.0-0.8) 06/17/24 00:20 Baso # (Auto) 0.1 10^3/uL (0.0-0.1) 06/17/24 00:20 Nucleated RBC % (auto) 0 % 06/17/24 00:20 Nucleated RBCs # 0.0 /100WBC 06/17/24 00:20 Sodium 142 mmol/L (136-145) 06/17/24 00:20 Potassium 3.9 mmol/L (3.5-5.1) 06/17/24 00:20 Chloride 107 mmol/L (98-107) 06/17/24 00:20 Carbon Dioxide 20 mmol/L (22-29) L 06/17/24 00:20 Anion Gap 18.9 (5-19) 06/17/24 00:20 BUN 8 mg/dL (6-20) 06/17/24 00:20 Creatinine 0.7 mg/dL (0.5-0.9) 06/17/24 00:20 GFR Calculation 95.2 mL/min (90-130) 06/17/24 00:20 Glucose 130 mg/dL (65-115) H 06/17/24 00:20 Calculated Osmolality 294 mOsm/kg (285-295) 06/17/24 00:20 Calcium 9.7 mg/dL (8.5-10.5) 06/17/24 00:20 Total Bilirubin 0.3 mg/dL (0.15-1.2) 06/17/24 00:20 AST 26 U/L (0-32) 06/17/24 00:20 ALT 41 U/L (0-33) H 06/17/24 00:20 Alkaline Phosphatase 88 U/L (35-105) 06/17/24 00:20 Troponin T Baseline < 6 ng/L (0-10) 06/17/24 00:20 Troponin T 120 Minute 6.00 ng/L (0-10) 06/17/24 02:20 Delta Troponin T 0.35608 ABS# (0-10) 06/17/24 02:20 Total Protein 7.0 g/dL (6.6-8.7) 06/17/24 00:20 Albumin 4.6 g/dL (3.5-5.2) 06/17/24 00:20 Globulin 2.4 g/dL (1.3-4.6) 06/17/24 00:20 Lipase 276 U/L (13-60) H 06/17/24 00:20 TSH 4.26 uIU/mL (0.27-4.20) H 06/17/24 00:20 HCG, Qual Negative (Negative) 06/17/24 00:55 Urine Color Yellow (Yellow) 06/17/24 00:55 Urine Appearance Cloudy (CLEAR) A 06/17/24 00:55 Urine pH 7.5 (5-7) 06/17/24 00:55 Ur Specific Fults 1.013 (1.005-1.030) 06/17/24 00:55 Urine Protein Negative (Negative) 06/17/24 00:55 Urine Glucose (UA) Negative (Normal) 06/17/24 00:55 Urine Ketones Negative (Negative) 06/17/24 00:55 Urine Blood Negative (Negative) 06/17/24 00:55 Urine Nitrate Negative (Negative) 06/17/24 00:55 Urine Bilirubin Negative (Negative) 06/17/24 00:55 Urine Urobilinogen 1.0 mg/dL (Negative) 06/17/24 00:55 Ur Leukocyte Esterase Trace (Negative) A 06/17/24 00:55 Urine RBC 0-2 /hpf (0-2) 06/17/24 00:55 Urine WBC 0-5 /hpf (0-5) 06/17/24 00:55 Ur Squamous Epith Cells 0-5 /hpf (0-5) 06/17/24 00:55 Amorphous Sediment Not Reportable 06/17/24 00:55 Urine Bacteria 1+ /hpf (NONE) H 06/17/24 00:55 Hyaline Casts 1.21 /lpf 06/17/24 00:55 All radiology interpretation(s) finalized by discharge Discharge Plan Discharge Patient Disposition: Home Clinical Impression: Anxiety, Elevated lipase Chest pain Qualifiers: Chest pain type: unspecified Qualified Code(s): R07.9 - Chest pain, unspecified Condition: Stable Prescriptions: No Action biotin 10 mg tablet 10 mg PO DAILY loratadine [Claritin] 10 mg tablet 10 mg PO DAILY PRN (Reason: Allergy Symptoms) tazarotene 0.1 % cream 1 applic topical DAILY Qty: 60 3RF Rx Instructions: apply pea sized amount to clean, dry face, chest and back nightly clindamycin-benzoyl peroxide 1.2 %(1 % base) -5 % gel 1 applic topical DAILY Qty: 45 2RF Rx Instructions: Apply thin film to face chest and back every morning. May bleach clothes. Probiotic Pearls Women's 1 billion cell capsule,delayed release(DR/EC) PO vitamin B complex Capsule 1 cap PO DAILY pantoprazole 20 mg tablet,delayed release (DR/EC) 20 mg PO DAILY Qty: 30 0RF Discharge Orders: Discharge ED (Routine); Ordered 06/17/24 Ordered By: Phil Tobar Referrals: Jana Goss DO [Primary Care Provider] - 1 week Patient Instructions: Chest Pain (ED), Pancreatitis Activity Restrictions/Additional Instructions: Your evaluation in the ER that included a chest pain workup was essentially benign. Your lipase was found to be elevated this may be indicative of pancreatitis. Usually the treatment for mild pancreatitis is starting a liquid diet for 2 to 3 days and it resolves on its own then advancing the diet as tolerated. If your pain worsens or this does not improve it you may need to follow-up with your primary care physician within the next 7 to 10 days for further evaluation and treatment or return to the ER. 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 Goss PTSD (post-traumatic stress disorder) Mild endometriosis (~08/2019) confirmed endometriosis lesions on the posterior aspect of the left uterosacral ligament cul-de-sac and left cardinal ligaments. Performed by Dr. Cassidy. Surgical History H/O bilateral salpingectomy (~08/2019) Pathology: Normal morphology. Confirmed endometriosis lesions on the posterior aspect of the left uterosacral ligament cul-de-sac and left cardinal ligaments. Performed by Dr. Cassidy. Family History Grandmother Diabetes maternal and paternal Heart disease paternal Grandfather Heart disease paternal Hypercholesteremia Paternal Hypertension Paternal Mother Thyroid disease Sister Cervical cancer dx age 24- at the time of dx; had hysterectomy Denies family history of Colon cancer Ovarian cancer Breast cancer Uterine cancer Stroke Social History Smoking and tobacco/nicotine status: never used tobacco/nicotine Alcohol intake: current Alcohol intake frequency: holidays/special occasions only Substance/Drug Use: never Course 2 Vital Signs: Vital signs: Vital Signs Temperature 98.0 F 06/16/24 23:49 Pulse Rate 84 06/17/24 02:00 Respiratory Rate 16 06/17/24 02:00 Blood Pressure 108/65 06/17/24 02:00 Pulse Oximetry 98 06/17/24 02:00 Oxygen Delivery Me thod Room Air 06/17/24 02:00 MDM - Chest Pain Medical Decision Making Patient presents emergency department today for complaints of retrosternal chest pain radiating into her back and extending out to her shoulders. Patient reports complaints of pain now for about 3 hours noting some improvement with taking Tums but, pain returning and worsening. Patient also endorses nausea and tingling/numbness around her lips and of her fingertips. Patient states that she has been told in the past she has heart issues. On arrival to the room, patient has normal vital signs though she is a bit tachypneic. She is sitting upright and is providing all of her own history. She seems extremely anxious and my initial suspicion is a panic attack given the tingling numbness around the mouth and the fingers. Patient states she is nauseated so we will treat with Compazine and Benadryl to see if that can also help provide a somewhat calming effect to the patient. Discussed with her we will provide her a cardiac evaluation here in the emergency department today. Discussed case with Dr. Tobar. At this time, we are still waiting for the patient's workup to be completed as we only have the CBC back at this time. Transfer of care to Dr. Tobar for continued monitoring and treatment of this patient at 0100. Lab work was reviewed, cardiac enzymes negative, patient's lipase is mildly elevated at 276, patient was mildly tender over her epigastric region. I had a discussion with her about pancreatitis and the potential of needing a contrasted CT scan of her abdomen pelvis. Patient does not want to stay here for that. Patient said she would go home and if she got worse she will come back. Lab Data 06/17/24 00:20 06/17/24 00:20 Radiology Impressions Chest X-Ray 06/17/24 00:11 IMPRESSION: No acute findings. Laboratory Results WBC 9.26 10^3/uL (3.29-11.43) 06/17/24 00:20 RBC 5.03 10^6/uL (3.85-5.65) 06/17/24 00:20 Hgb 15.50 g/dL (11.27-16.99) 06/17/24 00:20 Hct 44.9 % (36-47) 06/17/24 00:20 MCV 89.3 fl (85-98) 06/17/24 00:20 MCH 30.8 pg (27-33) 06/17/24 00:20 MCHC 34.5 g/dL (30-55) 06/17/24 00:20 RDW 12.3 % (12.1-15.1) 06/17/24 00:20 Plt Count 256 10^3/cmm (157-399) 06/17/24 00:20 MPV 11.0 fL (7.4-10.4) H 06/17/24 00:20 Neut % (Auto) 54.4 % 06/17/24 00:20 Lymph % (Auto) 35.6 % 06/17/24 00:20 Hardee % (Auto) 6.2 % 06/17/24 00:20 Eos % (Auto) 3.0 % 06/17/24 00:20 Baso % (Auto) 0.5 % 06/17/24 00:20 Neut # (Auto) 5.03 10^3/uL (1.8-7.7) 06/17/24 00:20 Lymph # (Auto) 3.3 10^3/uL (0.8-4.8) 06/17/24 00:20 Hardee # (Auto) 0.6 10^3/uL (0.2-0.9) 06/17/24 00:20 Eos # (Auto) 0.3 10^3/uL (0.0-0.8) 06/17/24 00:20 Baso # (Auto) 0.1 10^3/uL (0.0-0.1) 06/17/24 00:20 Nucleated RBC % (auto) 0 % 06/17/24 00:20 Nucleated RBCs # 0.0 /100WBC 06/17/24 00:20 Sodium 142 mmol/L (136-145) 06/17/24 00:20 Potassium 3.9 mmol/L (3.5-5.1) 06/17/24 00:20 Chloride 107 mmol/L (98-107) 06/17/24 00:20 Carbon Dioxide 20 mmol/L (22-29) L 06/17/24 00:20 Anion Gap 18.9 (5-19) 06/17/24 00:20 BUN 8 mg/dL (6-20) 06/17/24 00:20 Creatinine 0.7 mg/dL (0.5-0.9) 06/17/24 00:20 GFR Calculation 95.2 mL/min (90-130) 06/17/24 00:20 Glucose 130 mg/dL (65-115) H 06/17/24 00:20 Calculated Osmolality 294 mOsm/kg (285-295) 06/17/24 00:20 Calcium 9.7 mg/dL (8.5-10.5) 06/17/24 00:20 Total Bilirubin 0.3 mg/dL (0.15-1.2) 06/17/24 00:20 AST 26 U/L (0-32) 06/17/24 00:20 ALT 41 U/L (0-33) H 06/17/24 00:20 Alkaline Phosphatase 88 U/L (35-105) 06/17/24 00:20 Troponin T Baseline < 6 ng/L (0-10) 06/17/24 00:20 Troponin T 120 Minute 6.00 ng/L (0-10) 06/17/24 02:20 Delta Troponin T 0.04862 ABS# (0-10) 06/17/24 02:20 Total Protein 7.0 g/dL (6.6-8.7) 06/17/24 00:20 Albumin 4.6 g/dL (3.5-5.2) 06/17/24 00:20 Globulin 2.4 g/dL (1.3-4.6) 06/17/24 00:20 Lipase 276 U/L (13-60) H 06/17/24 00:20 TSH 4.26 uIU/mL (0.27-4.20) H 06/17/24 00:20 HCG, Qual Negative (Negative) 06/17/24 00:55 Urine Color Yellow (Yellow) 06/17/24 00:55 Urine Appearance Cloudy (CLEAR) A 06/17/24 00:55 Urine pH 7.5 (5-7) 06/17/24 00:55 Ur Specific Fults 1.013 (1.005-1.030) 06/17/24 00:55 Urine Protein Negative (Negative) 06/17/24 00:55 Urine Glucose (UA) Negative (Normal) 06/17/24 00:55 Urine Ketones Negative (Negative) 06/17/24 00:55 Urine Blood Negative (Negative) 06/17/24 00:55 Urine Nitrate Negative (Negative) 06/17/24 00:55 Urine Bilirubin Negative (Negative) 06/17/24 00:55 Urine Urobilinogen 1.0 mg/dL (Negative) 06/17/24 00:55 Ur Leukocyte Esterase Trace (Negative) A 06/17/24 00:55 Urine RBC 0-2 /hpf (0-2) 06/17/24 00:55 Urine WBC 0-5 /hpf (0-5) 06/17/24 00:55 Ur Squamous Epith Cells 0-5 /hpf (0-5) 06/17/24 00:55 Amorphous Sediment Not Reportable 06/17/24 00:55 Urine Bacteria 1+ /hpf (NONE) H 06/17/24 00:55 Hyaline Casts 1.21 /lpf 06/17/24 00:55 Discharge Plan Discharge Patient Disposition: Home Clinical Impression: Anxiety, Elevated lipase Chest pain Qualifiers: Chest pain type: unspecified Qualified Code(s): R07.9 - Chest pain, unspecified Condition: Stable Prescriptions: No Action biotin 10 mg tablet 10 mg PO DAILY loratadine [Claritin] 10 mg tablet 10 mg PO DAILY PRN (Reason: Allergy Symptoms) tazarotene 0.1 % cream 1 applic topical DAILY Qty: 60 3RF Rx Instructions: apply pea sized amount to clean, dry face, chest and back nightly clindamycin-benzoyl peroxide 1.2 %(1 % base) -5 % gel 1 applic topical DAILY Qty: 45 2RF Rx Instructions: Apply thin film to face chest and back every morning. May bleach clothes. Probiotic Pearls Women's 1 billion cell capsule,delayed release(DR/EC) PO vitamin B complex Capsule 1 cap PO DAILY pantoprazole 20 mg tablet,delayed release (DR/EC) 20 mg PO DAILY Qty: 30 0RF Discharge Orders: Discharge ED (Routine); Ordered 06/17/24 Ordered By: Phil Tobar Referrals: Jana Goss DO [Primary Care Provider] - 1 week Patient Instructions: Chest Pain (ED), Pancreatitis Activity Restrictions/Additional Instructions: Your evaluation in the ER that included a chest pain workup was essentially benign. Your lipase was found to be elevated this may be indicative of pancreatitis. Usually the treatment for mild pancreatitis is starting a liquid diet for 2 to 3 days and it resolves on its own then advancing the diet as tolerated. If your pain worsens or this does not improve it you may need to follow-up with your primary care physician within the next 7 to 10 days for further evaluation and treatment or return to the ER. 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
[2024-06-17] MEDS: prochlorperazine 10 mg/2 mL Inj IVP (00:24)
[2024-06-17 00:25] LABS: Basophils # 0.1 10^3/uL (0.0-0.1); Basophils % 0.5 %; Eosinophils # 0.3 10^3/uL (0.0-0.8); Hematocrit 44.9 % (36-47); Lymphocytes # 3.3 10^3/uL (0.8-4.8); Lymphocytes % 35.6 %; Mean Corpuscular HGB Conc 34.5 g/dL (30-55); Mean Corpuscular Hemoglobin 30.8 pg (27-33); Mean Corpuscular Volume 89.3 fl (85-98); Monocytes # 0.6 10^3/uL (0.2-0.9); Monocytes % 6.2 %; Neutrophils # 5.03 10^3/uL (1.8-7.7); Neutrophils % 54.4 %; Nucleated Red Blood Cells % 0 %; Platelet Count 256 10^3/cmm (157-399); Red Blood Count 5.03 10^6/uL (3.85-5.65); Red Cell Distribution Width 12.3 % (12.1-15.1); White Blood Count 9.26 10^3/uL (3.29-11.43)
[2024-06-17] MEDS: diphenhydrAMINE 50 mg/mL SDV 1mL 25 MG IVP (00:25)
[2024-06-17 00:48] LABS: Troponin(5th) Baseline < 6 ng/L (0-10)
[2024-06-17 00:49] LABS: Alanine Aminotransferase 41 U/L (0-33); Albumin Level 4.6 g/dL (3.5-5.2); Alkaline Phosphatase 88 U/L (35-105); Anion Gap 18.9 (5-19); Aspartate Amino Transferase 26 U/L (0-32); Blood Urea Nitrogen 8 mg/dL (6-20); Calcium 9.7 mg/dL (8.5-10.5); Carbon Dioxide 20 mmol/L (22-29); Chloride 107 mmol/L (98-107); Globulin 2.4 g/dL (1.3-4.6); Glomerular Filtration Rate 95.2 mL/min (90-130); Glucose 130 mg/dL (65-115); Lipase 276 U/L (13-60); Osmolality Calculated 294 mOsm/kg (285-295); Potassium 3.9 mmol/L (3.5-5.1); Sodium 142 mmol/L (136-145); Total Bilirubin 0.3 mg/dL (0.15-1.2)
[2024-06-17 00:58] LABS: Thyroid Stimulating Hormone 4.26 uIU/mL (0.27-4.20)
[2024-06-17 01:00] LABS: Charge for UA Resulting for Rev
[2024-06-17 01:07] LABS: Bilirubin Urine Negative (Negative); Blood Urine Negative (Negative); Glucose Urine UA Negative (Normal); Ketones Urine Negative (Negative); Leukocyte Esterase Urine Trace (Negative); Nitrate Urine Negative (Negative); Protein Urine Negative (Negative); Specific Gravity, Urine 1.013 (1.005-1.030); Urine Appearance Cloudy (CLEAR); Urine Color Yellow (Yellow); pH Urine 7.5 (5-7)
[2024-06-17 01:11] LABS: Bacteria Urine 1+ /hpf; Hyaline Casts Urine 1.21 /lpf; RBC Urine 0-2 /hpf (0-2); Squamous Epithelial Cell Urine 0-5 /hpf (0-5); WBC Urine 0-5 /hpf (0-5)
[2024-06-17 01:35] LABS: HCG Qualitative Urine. Negative (Negative)
[2024-06-17 01:37] LABS: Add Urine Culture? No
[2024-06-17 01:40] VITALS: BP 108/67; PULSE 88; RESP 13; O2SAT 97
[2024-06-17 02:00] VITALS: BP 108/65; PULSE 84; RESP 16; O2SAT 98
--- NOTE | 2024-06-17 02:23 | ECG_ITS ---
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 Measurements Intervals [place] Rate: 74 P: 23 RI: 150 QRS: 12 QRSD: 99 T: 13 QT: 390 QTc: 435 Interpretive Statements SINUS RHYTHM LOW QRS VOLTAGE IN PRECORDIAL LEADS [QRS DEFLECTION < 1.0 mV IN CHEST LEADS] INCOMPLETE RIGHT BUNDLE BRANCH BLOCK [90+ ms QRS DURATION, TERMINAL R IN V1/V2, 40+ ms S IN I/aVL/V4/V5/V6] MODERATE T-WAVE ABNORMALITY, CONSIDER ANTERIOR ISCHEMIA [-0.1+ mV T-WAVE IN V3/V4] Compared to ECG 02/26/2023 20:14:35 Low QRS voltage now present T-wave abnormality now present Possible ischemia now present Sinus arrhythmia no longer present Myocardial infarct finding no longer present Electronically Signed On 06-17-2024 10:30:10 CDT by John Navarro M.D. [email or web address]
[2024-06-17 02:46] LABS: Troponin 5 2HR Delta 0.00001 ABS# (0-10)
[2024-06-17 03:06] VITALS: BP 111/79; RESP 18; O2SAT 98
== END 2024-06-17 03:14 | disposition home or self-care (01) ==
PROVIDERS: Emergency Provider Physician Assistant; PCP Family Medicine
DX: R07.9 Chest pain, unspecified (principal); F41.9 Anxiety disorder, unspecified; R74.8 Abnormal levels of other serum enzymes
CPT/HCPCS: 71045; 80053; 81003; 81015; 81025; 83690; 84443; 84484; 85025; 93005; 96374; 96375; 99285; J0780; J1200

== ENCOUNTER → 2024-07-30 10:18 | Outpatient (BNVA) | payer OTHER, SELFPAY | PROVIDERS: PCP Family Medicine; Visit Provider Nurse Practitioner Family | DX: J02.9 Acute pharyngitis, unspecified (principal) | CPT/HCPCS: 87426; 87880 ==

== ENCOUNTER → 2025-08-20 14:34 | Outpatient (BNVA) | payer BC, SELFPAY | PROVIDERS: PCP Family Medicine; Visit Provider Family Medicine | DX: Z13.6 Encounter for screening for cardiovascular disorders (principal) | CPT/HCPCS: 80053; 80061; 83036; 85025 ==